=== PATIENT | male | born 1980 | race Caucasian/White ===

== ENCOUNTER 2016-08-04 20:44 | Emergency (ER) | payer OTHER ==
[~2016-08-04] VITALS: Ht 190.5 cm; Wt 109.7 kg
[~2016-08-04 20:44] MED LIST: ALBUAER INH
[2016-08-04 20:46] VITALS: TEMP 36.8
[2016-08-04 20:55] VITALS: O2SAT 92
[2016-08-04] MEDS ORDERED: ALBUT/IPRATROP 3MG/0.5MG NEB 3 ML VIAL INH ONE (21:00)
[2016-08-04] MEDS ORDERED: SODIUM CHLORIDE 0.9% 1000ML 1,000 ML IV STA (21:00)
[2016-08-04] MEDS ORDERED: METHYLPREDNISOLONE 125 MG VIAL IV STA (21:00)
[2016-08-04] MEDS ORDERED: PRVHFAIN PO (21:01)
[2016-08-04] MEDS ORDERED: FLUT1INH PO (21:01)
[2016-08-04] MEDS ORDERED: DEXT30TA7 PO (21:02)
[2016-08-04] MEDS ORDERED: AFRINWC (21:02)
[2016-08-04 21:10] VITALS: PULSE 83; O2SAT 95; Ht 190.5 cm; Wt 109.7 kg
[2016-08-04 21:16] LABS: BASO % 0.5 %; BASO ABS # 0.03 K/uL (0-0.2); COMPLETE YES; EOS % 8.8 %; HEMATOCRIT 41.9 % (42-52); IG% 0.2 %; LYMPH % 27.6 %; LYMPH ABS # 1.63 K/uL (1.2-3.4); MEAN CELL VOLUME 89.7 fL (80-100); MEAN CORPUSCULAR HEMOGLOBIN 31.9 pg (25-34); MEAN CORPUSCULAR HGB CONC 35.6 g/dl (32-36); MEAN PLATELET VOLUME 10.6 fL (7.4-10.4); MONO % 9.5 %; NEUT % 53.4 %; PLATELET COUNT 206 K/uL (130-400); RED BLOOD COUNT 4.67 M/uL (4.7-6.1); WHITE BLOOD COUNT 5.91 K/uL (4.8-10.8)
--- NOTE | 2016-08-04 21:19 | EMERGENCY ROOM VISIT NOTE ---
History Report prepared by Scout: Kalpesh Montalvo Under the Supervision of: Dr. John Martin D.O. First contact with patient: 20:53 Chief Complaint: RESPIRATORY DISTRESS Stated Complaint: ASTHMA ATTACK Nursing Triage Summary: pt presents with c/o shortness of breath and wheezing states he has been coughing up increased clear sputum pt has a history of asthma states he has used his rescue inhaler 10 times in the last hours pt states he has had nasal congestion and cough (in the mornings) for about two months pt denies fever History of Present Illness The patient is a 36 year old male who presents to the Emergency Room with complaints of respiratory distress that began about two hours ago. The patient and his were moving today. They were moving furniture and going up and down stairs frequently. The patient began to feel a chest tightness without any pain. He then began to experience respiratory trouble. He states that when this occurred, he took a hot shower which usually helps. It did not help this time. He has a history of this same problem. The last time this occurred was two years ago. He was brought to the ER and given three breathing treatments. He has associated coughing with clear sputum production. He did not have a breathing treatment today. He has never taken steroids for respiratory issues. He was on Prednisone for a sinus problem. He does not have any past medical history or medical problems. The only surgery he has had were dental. He denies any pain in his legs, leg edema, nausea, or vomiting. Source of History: patient Onset: two hours ago Position: other (lungs) Symptom Intensity: moderate Quality: other (respiratory distress) Timing: other (persistent) Associated Symptoms: + SOB, No nausea, No vomiting Note: He has associated chest tightness. He denies any leg swelling or pain. Review of Systems See HPI for pertinent positives & negatives. A total of 10 systems reviewed and were otherwise negative. Past Medical & Surgical Surgical Problems: (1) [place] teeth extracted Family History Heart disease Social History Smoking Status: Former Smoker Alcohol Use: occasionally Drug Use: none Marital Status: Housing Status: lives with significant other Occupation Status: employed Current/Historical Medications Scheduled Fluticasone Furoate-Vilanterol (Breo Ellipta), 1 PUFF PO DAILY Oxymetazoline Hcl (Afrin 0.05% Nasal [place]), 1 BTL NA DIRECTED Prednisone (Prednisone Tab), 40 MG PO DAILY Scheduled PRN Albuterol (Ventolin Hfa), 1 PUFF PO DAILY PRN for SOB/Wheezing Dextromethorphan-Guaifenesin (Mucinex Dm), 1 TAB PO Q12 PRN for SOB/Wheezing Allergies Coded Allergies: No Known Allergies (Unverified , 08/04/16) Uncoded Allergies: ? CATS (Allergy, Mild, 06/12/08) SEASONAL (Allergy, Mild, 06/12/08) Physical Exam Vital Signs Date Time Temp Pulse Resp B/P Pulse Ox O2 Delivery O2 Flow Rate FiO2 08/04/16 22:39 85 18 127/78 97 Room Air 08/04/16 22:01 81 18 139/87 100 Room Air 08/04/16 21:10 83 22 95 Nasal Cannula 2.0 08/04/16 21:08 78 08/04/16 20:57 Nasal Cannula 2.0 08/04/16 20:55 92 Nasal Cannula 2.0 08/04/16 20:52 92 Nasal Cannula 2.0 08/04/16 20:46 36.8 110 24 121/85 88 Room Air Physical Exam GENERAL: Patient is awake, alert, and in no acute distress. Patient is resting comfortably and showing moderate signs of anxiety. EYES: The conjunctivae are clear. The pupils are round and reactive. EARS, NOSE, MOUTH AND THROAT: The nose is without any evidence of any deformity. Mucous membranes are moist tongue is midline NECK: The neck is nontender and supple. RESPIRATORY: Diminished throughout. Expiratory wheezing noted in all wright. Tachypnea noted. No conversational dyspnea. CARDIOVASCULAR: Regular rate and rhythm noted there no murmurs rubs or gallops normal S1 normal S2 GASTROINTESTINAL: The abdomen is soft. Bowel sounds are present in all quadrants. Abdomen is nontender MUSCULOSKELETAL/EXTREMITIES: There is no evidence of gross deformity full range of motion is noted in the hips and shoulders SKIN: There is no obvious evidence of any rash. There are no petechiae, pallor or cyanosis noted. No calf tenderness. NEUROLOGIC: Patient is awake alert and oriented x3. Medical Decision & Procedures ER Provider Diagnostic Interpretation: X-ray results as stated below per interpretation by me and the radiologist. CHEST ONE VIEW PORTABLE CLINICAL HISTORY: Respiratory distress. Shortness of breath COMPARISON STUDY: June 14, 2015 FINDINGS: The cardiac and mediastinal contours are normal. There is no evidence of focal pulmonary consolidation. There is no evidence of failure. No pleural effusions are visualized.[ IMPRESSION: No active disease in the chest. Electronically signed by: Deshawn Ley M.D. 08/04/2016 9:34 PM Dictated Date/Time: 08/04/2016 9:34 PM Laboratory Results 08/04/16 21:05 Red Blood Count 4.67, Mean Corpuscular Volume 89.7, Mean Corpuscular Hemoglobin 31.9, Mean Corpuscular Hemoglobin Concent 35.6, Mean Platelet Volume 10.6, Neutrophils (%) (Auto) 53.4, Lymphocytes (%) (Auto) 27.6, Monocytes (%) (Auto) 9.5, Eosinophils (%) (Auto) 8.8, Basophils (%) (Auto) 0.5, Neutrophils # (Auto) 3.16, Lymphocytes # (Auto) 1.63, Monocytes # (Auto) 0.56, Eosinophils # (Auto) 0.52, Basophils # (Auto) 0.03 08/04/16 21:05 Test 08/04/16 21:05 White Blood Count 5.91 K/uL (4.8-10.8) Red Blood Count 4.67 M/uL (4.7-6.1) Hemoglobin 14.9 g/dL (14.0-18.0) Hematocrit 41.9 % (42-52) Mean Corpuscular Volume 89.7 fL (80-100) Mean Corpuscular Hemoglobin 31.9 pg (25-34) Mean Corpuscular Hemoglobin Concent 35.6 g/dl (32-36) Platelet Count 206 K/uL (130-400) Mean Platelet Volume 10.6 fL (7.4-10.4) Neutrophils (%) (Auto) 53.4 % Lymphocytes (%) (Auto) 27.6 % Monocytes (%) (Auto) 9.5 % Eosinophils (%) (Auto) 8.8 % Basophils (%) (Auto) 0.5 % Neutrophils # (Auto) 3.16 K/uL (1.4-6.5) Lymphocytes # (Auto) 1.63 K/uL (1.2-3.4) Monocytes # (Auto) 0.56 K/uL (0.11-0.59) Eosinophils # (Auto) 0.52 K/uL (0-0.5) Basophils # (Auto) 0.03 K/uL (0-0.2) RDW Standard Deviation 40.4 fL (36.4-46.3) RDW Coefficient of Variation 12.6 % (11.5-14.5) Immature Granulocyte % (Auto) 0.2 % Immature Granulocyte # (Auto) 0.01 K/uL (0.00-0.02) Anion Gap 11.0 mmol/L (3-11) Est Creatinine Clear Calc Drug Dose 113.8 ml/min Estimated GFR () 89.6 Estimated GFR (Non- 77.3 BUN/Creatinine Ratio 11.3 (10-20) Calcium Level 8.7 mg/dl (8.5-10.1) Total Bilirubin 0.2 mg/dl (0.2-1) Aspartate Amino Transf (AST/SGOT) 20 U/L (15-37) Alanine Aminotransferase (ALT/SGPT) 32 U/L (12-78) Alkaline Phosphatase 65 U/L (45-117) Troponin I < 0.015 ng/ml (0-0.045) Total Protein 7.1 gm/dl (6.4-8.2) Albumin 3.8 gm/dl (3.4-5.0) Globulin 3.3 gm/dl (2.5-4.0) Albumin/Globulin Ratio 1.2 (0.9-2) Laboratory results per my review. Medications Administered Medications (Trade) Dose Ordered Sig/Michael Route Start Time Stop Time Status Last Admin Dose Admin Methylprednisolone Sodium Succinate (Solu-Medrol IV) 125 mg NOW STAT IV 08/04/16 21:00 08/04/16 21:03 DC 08/04/16 21:10 125 MG Albuterol/ Ipratropium 12 ml 12 ml ONE ONCE INH 08/04/16 21:00 08/04/16 21:03 DC 08/04/16 21:06 12 ML Sodium Chloride (Nss 1000ml) 1,000 ml @ 999 mls/hr Q1H1M STAT IV 08/04/16 21:00 08/04/16 22:00 DC 08/04/16 21:10 999 MLS/HR ECG Indication: SOB/dyspnea Rate (beats per minute): 87 Rhythm: normal sinus Findings: no ectopy, other (No ST segment abnormalities) Comparison ECG Date: 12 Jun 2008 Change: no significant change ED Course 2052: The patient was evaluated in room C10. A complete history and physical examination were performed. 2100: NSS 1,000 ml @ 999 mls/hr IV, Duoneb 12 ml INH, Solu-Medrol IV 125 mg IV 2235: I reassessed the patient at this time. He is no longer hypoxic. 2239: Upon reevaluation, the patient is resting. I discussed the results and treatment plan with him. He verbalized agreement of the treatment plan. He was discharged home. Medical Decision Differential diagnosis: Etiologies such as infections, reactive airway disease, pneumonia, pneumothorax , COPD, CHF, cardiac ischemia, pulmonary embolism, musculoskeletal, gastrointestinal, as well as others were entertained. Nursing notes reviewed. Additional history is obtained from the patient's significant other. The patient is a 36-year-old male who presented to the emergency department for an evaluation of shortness of breath. The patient is a history of asthma. He states he's had a similar episode in the past but not this bad for 2 years. Initially he was hypoxic. He was treated with bronchodilators in the emergency department. He was also started on IV steroids. On subsequent reevaluation he was feeling much better. At rest his oxygen level was acceptable. He had no significant tachypnea on final reevaluation. I discussed the patient's laboratory and radiographic studies with him. He was encouraged to rest and avoid any strenuous activity. He was encouraged to continue all medications as prescribed. He was also encouraged to follow-up with his primary care physician this week for reevaluation but return to the emergency department immediately if symptoms change worsen or the need arises. Impression Primary Impression: Asthma exacerbation Additional Impression: SOB (shortness of breath) Scribe Attestation The scribe's documentation has been prepared under my direction and personally reviewed by me in its entirety. I confirm that the note above accurately reflects all work, treatment, procedures, and medical decision making performed by me. Departure Information Dispostion Home / Self-Care Prescriptions Prednisone (Prednisone Tab) 20 Mg Tab 40 MG PO DAILY, #10 TAB Prov: John Martin DO 08/04/16 Referrals Simon Quiñonez DO (PCP) Forms HOME CARE DOCUMENTATION FORM, IMPORTANT VISIT INFORMATION Patient Instructions Asthma - [facility], COPD - [facility], Croup - [facility], [facility] Additional Instructions Call your primary care physician in the morning to schedule a follow-up appointment. Rest and avoid any strenuous activity. Continue all medications as prescribed. Return to the emergency department immediately if symptoms change worsen or if the need arises. Problem Qualifiers
[2016-08-04 21:34] LABS: ALT/SGPT 32 U/L (12-78); BLOOD UREA NITROGEN 14 mg/dl (7-18); BUN/CREATININE RATIO 11.3 (10-20); CALCIUM 8.7 mg/dl (8.5-10.1); CARBON DIOXIDE 25 mmol/L (21-32); CHLORIDE 107 mmol/L (98-107); GLUCOSE 97 mg/dl (70-99); POTASSIUM 4.2 mmol/L (3.5-5.1); SODIUM 143 mmol/L (136-145)
--- NOTE | 2016-08-04 21:36 | DIAGNOSTIC IMAGING REPORT ---
CHEST ONE VIEW PORTABLE CLINICAL HISTORY: Respiratory distress. Shortness of breath COMPARISON STUDY: June 14, 2015 FINDINGS: The cardiac and mediastinal contours are normal. There is no evidence of focal pulmonary consolidation. There is no evidence of failure. No pleural effusions are visualized.[ IMPRESSION: No active disease in the chest. Electronically signed by: Deshawn Ley M.D. 08/04/2016 9:34 PM Dictated Date/Time: 08/04/2016 9:34 PM
[2016-08-04 21:38] LABS: ALB/GLOB RATIO 1.2 (0.9-2); ALKALINE PHOSPHATASE 65 U/L (45-117); AST/SGOT 20 U/L (15-37)
[2016-08-04] MEDS ORDERED: PRED20TA2 PO (22:37)
[2016-08-04 22:39] VITALS: BP 127/78; PULSE 85; O2SAT 97
== END 2016-08-04 22:42 | disposition home or self-care (01) ==
LOC: C.EDB 20:45 → C.EDC 22:42
DX: J45.901 Unspecified asthma with (acute) exacerbation (principal); Z87.891 Personal history of nicotine dependence; Z82.49 Family history of ischemic heart disease and other diseases of the circulatory system